=== PATIENT | female | born 1990 | race Caucasian/White ===

== ENCOUNTER 2022-12-24 12:09 | Emergency (ER) | payer OTHER ==
[~2022-12-24] VITALS: Ht 167.6 cm; Wt 61.2 kg
[2022-12-24 12:47] LABS: BASOPHILS ABSOLUTE AUTO 0.04 K/mm3 (0.00-0.23); BASOPHILS PERCENT AUTO 1 % (0-2); EOSINOPHILS ABSOLUTE AUTO 0.02 K/mm3 (0.00-0.68); EOSINOPHILS PERCENT AUTO 0 % (0-6); Hematocrit 40.6 % (33.0-51.0); Hemoglobin 13.4 g/dL (11.5-16.0); IMMATURE GRAN ABSOLUTE AUTO 0.01 K/mm3 (0.00-0.10); IMMATURE GRAN PERCENT AUTO 0 % (0-1); LYMPHOCYTES ABSOLUTE AUTO 1.43 K/mm3 (0.84-5.20); LYMPHOCYTES PERCENT AUTO 24 % (21-46); MONOCYTES ABSOLUTE AUTO 0.49 K/mm3 (0.16-1.47); MONOCYTES PERCENT AUTO 8 % (4-13); Mean Corpuscular HGB 28.2 pg (26.0-34.0); Mean Corpuscular Volume 85 fL (80-100); Mean Platelet Volume 9.6 fL (9.1-12.4); NEUTROPHILS ABSOLUTE AUTO 3.94 K/mm3 (1.96-9.15); NEUTROPHILS PERCENT AUTO 66 % (41-73); Platelet Count 271 K/mm3 (150-400); RDW Coefficient Variation 12.9 % (11.7-14.2); RDW Standard Deviation 40.2 fL (35.1-46.3); Red Blood Cell Count 4.76 M/mm3 (3.80-5.20); White Blood Cell Count 5.93 K/mm3 (4.00-11.30)
[2022-12-24 13:17] LABS: Albumin, Blood 3.7 g/dL (3.4-5.0); Albumin/Globulin Ratio 0.8 (0.8-1.8); Bilirubin, Total 0.3 mg/dL (0.1-1.0); Bun/Creatinine Ratio 14.8 (12.0-20.0); Creatinine, Blood 0.74 mg/dL (0.40-1.00); Globulin, Blood 4.4 g/dL (2.2-4.0); Potassium, Blood 3.3 mmol/L (3.5-5.5); Total Protein, Blood 8.1 g/dL (6.4-8.2)
[2022-12-24 13:42] LABS: International Normalized Ratio 1.04; Prothrombin Time Results 10.9 Sec (9.7-11.5)
[2022-12-24 14:24] LABS: Source, Urine Clean Catch
[2022-12-24 14:29] LABS: Appearance, Urine Clear (Clear); Bilirubin, Urine Neg (Neg); Blood, Urine 3+ (Neg); Color, Urine Amber (P-Yellow); Glucose Qualitative, Urine Neg (Neg); Ketones, Urine 4+ (Neg); Leukocyte Esterase, Urine Neg (Neg); Nitrite, Urine Neg (Neg); Protein, Urine 2+ (Neg); Urobilinogen, Urine NORM (Normal)
[2022-12-24 14:36] LABS: Squamous Epithelial Cells Few /hpf (Few)
[2022-12-24 14:38] LABS: Bacteria Mod /hpf; Renal Epithelial Rare /hpf (0-Rare)
[2022-12-24] MEDS ORDERED: CEPH500 PO (14:58)
[2022-12-24 15:30] VITALS: BP 113/75
== END 2022-12-24 15:37 | disposition home or self-care (01) ==
LOC: ER 12:09
PROVIDERS: Emergency Medicine; Physician Assistant
DX: K64.9 Unspecified hemorrhoids (principal); N39.0 Urinary tract infection, site not specified; J06.9 Acute upper respiratory infection, unspecified
CPT/HCPCS: 36415; 80053; 81001; 83690; 84703; 85025; 85610; 85730; 86308; 87086; 99283

== ENCOUNTER 2023-01-01 15:37 | Emergency (ER) | payer OTHER ==
[~2023-01-01] VITALS: Ht 167.6 cm; Wt 61.2 kg
[~2023-01-01 15:37] MED LIST: CEPH500 PO
[2023-01-01 15:48] VITALS: BP 132/90
[2023-01-01] MEDS ORDERED: Prednisone20 MG PO (15:51)
== END 2023-01-01 15:50 | disposition home or self-care (01) ==
LOC: ER 15:37
DX: G51.0 Bell's palsy (principal); Z79.52 Long term (current) use of systemic steroids
CPT/HCPCS: 99283